=== PATIENT | male | born 1955 | race American Indian/Alaskan Native ===

== ENCOUNTER 2017-02-24 09:09 | Day surgery (SDC) | payer BC, OTHER ==
[2017-02-18 13:06] VITALS: BMI 39.4
[2017-02-24] MEDS ORDERED: Propofol 10 mg/ml Inj (20 ML) ONE (11:09)
[2017-02-24] MEDS ORDERED: Etomidate 20 mg/10ml Inj IV ONE (11:14)
[2017-02-24] MEDS ORDERED: Sodium Chloride 0.9% 1,000 ML IV SCH (12:00)
[2017-02-24 13:40] VITALS: BP 125/76; PULSE 53; RESP 19; TEMP 97.9; O2SAT 97
== END 2017-02-24 13:34 | disposition home or self-care (01) ==
LOC: ENDO 09:09
PROVIDERS: ATTEND Internal Medicine Gastroenterology
DX: D12.0 Benign neoplasm of cecum (principal); D12.3 Benign neoplasm of transverse colon; K62.1 Rectal polyp; Z12.11 Encounter for screening for malignant neoplasm of colon; K57.30 Diverticulosis of large intestine without perforation or abscess without bleeding; E11.9 Type 2 diabetes mellitus without complications; I10 Essential (primary) hypertension; I25.10 Atherosclerotic heart disease of native coronary artery without angina pectoris; E78.5 Hyperlipidemia, unspecified
CPT/HCPCS: 45380; 45385; 82948; 88305; J2704; J3010; J7040